=== PATIENT | male | born 1935 | race Caucasian/White ===

== ENCOUNTER 2018-02-03 19:04 | Inpatient (IN) | payer MEDICARE, OTHER ==
[~2018-02-03] VITALS: Ht 170.2 cm; Wt 90.0 kg
[~2018-02-03 19:04] MED LIST: GOLYS PO
[2018-02-03] MEDS ORDERED: normal saline 1000ML IV soln IVB ONE ×2 (19:25→20:40)
[2018-02-03] MEDS ORDERED: morphine 4 MG/ML inj SYRINge IV ONE (19:25)
[2018-02-03] MEDS ORDERED: ondansetron/PF 4mg/2ml inj IV ONE (19:30)
[2018-02-03 19:44] LABS: BASOPHILS % (AUTO) 0 % (0-1); EOSINOPHILS % (AUTO) 0.3 % (0-6); HEMOGLOBIN 13.2 g/dl (14.0-17.9); LYMPHOCYTES # (AUTO) 0.3 X10'3 (1.1-4.8); LYMPHOCYTES % (AUTO) 14.4 % (21-51); MEAN CORPUSCULAR HEMOGLOBIN 30.5 PG (27.0-31.0); MEAN CORPUSCULAR HGB CONC 33.8 % (33.0-36.5); MEAN CORPUSCULAR VOLUME 90.2 FL (78-98); MEAN PLATELET VOLUME 7.9 FL (7.4-10.4); MONOCYTES % (AUTO) 0.9 % (2-12); NEUTROPHILS % (AUTO) 84.4 % (42-75); PLATELET COUNT 159 X10'3 (140-440); RED BLOOD COUNT 4.32 X10'6 (4.70-6.10); RED CELL DISTRIBUTION WIDTH 16.8 % (11.5-14.5); WHITE BLOOD COUNT 2.4 X10'3 (4.5-11.0)
[2018-02-03 19:58] LABS: ALANINE AMINOTRANSFERASE 14 U/L (12-78); ALBUMIN 3.3 G/DL (3.4-5.0); ALBUMIN/GLOBULIN RATIO 0.9 (1.1-1.5); ALKALINE PHOSPHATASE 89 IU/L (46-116); ANION GAP 15 (8-16); ASPARTATE AMINO TRANSFERASE 25 U/L (10-37); BILIRUBIN,TOTAL 0.8 MG/DL (0.1-1.0); BLOOD UREA NITROGEN 34 MG/DL (7-18); BUN/CREATININE RATIO 20.7 (5.4-32.0); CALCIUM 8.4 MG/DL (8.5-10.1); CHLORIDE 106 MMOL/L (99-107); CREATININE 1.64 MG/DL (0.60-1.10); POTASSIUM 3.8 MMOL/L (3.5-5.1); SODIUM 144 MMOL/L (135-145); TOTAL CARBON DIOXIDE 23.4 MMOL/L (24-32); eGFR 40 ML/MIN
[2018-02-03 20:02] LABS: GLUCOSE 95 MG/DL (70-104)
[2018-02-03 20:03] LABS: INR 2.6 INR; PARTIAL THROMBOPLASTIN TIME 31 SECONDS (22-32); PROTHROMBIN TIME 25.4 SECONDS (9.0-12.0)
[2018-02-03 20:15] LABS: CLARITY,URINE TURBID (Clear); COLOR,URINE RED (Yellow); GLUCOSE, URINE NEGATIVE (Neg); KETONES,URINE NEGATIVE (Neg); LEUKOCYTE ESTERASE ,URINE LARGE (Neg); NITRITES, URINE NEGATIVE (Neg); OCCULT BLOOD,URINE LARGE (Neg); PROTEIN,URINE 30 mg/dl (Neg)
[2018-02-03 20:21] LABS: UA COLLECTION TYPE STRAIGHT CATH
[2018-02-03 20:22] LABS: BACTERIA,URINE 4+ /HPF (Neg); RBC,URINE 50-100 /HPF (0-2); SQUAMOUS EPITHELIAL CELL,UR FEW /LPF (FEW); WBC,URINE 50-100 /HPF (0-4)
[2018-02-03] MEDS ORDERED: levoFLOXACIN-Levaquin 500mg/D5 100 ML IV ONE (20:30)
[2018-02-03 20:33] LABS: TOTAL CELLS COUNTED 100
[2018-02-03 20:35] LABS: ANISOCYTOSIS 1+; GIANT PLATELET FEW; LARGE PLATELETS FEW; PLATELET ESTIMATE NORMAL
[2018-02-03 20:37] LABS: BURR CELLS 1+; POLYCHROMASIA FEW
[2018-02-04] MEDS ORDERED: LEVO75TA PO (00:14)
[2018-02-04] MEDS ORDERED: POTA10TA10 PO (00:14)
[2018-02-04] MEDS ORDERED: MIDO5TAB PO (00:14)
[2018-02-04] MEDS ORDERED: BRIM5DRO16 EACHEYE (00:14)
[2018-02-04] MEDS ORDERED: MICO57CR2 TP (00:14)
[2018-02-04] MEDS ORDERED: POLY17PO10 PO (00:14)
[2018-02-04] MEDS ORDERED: CYA500T PO (00:14)
[2018-02-04] MEDS ORDERED: ATOR20TA66 PO (00:14)
[2018-02-04] MEDS ORDERED: XAL0.005OS EACHEYE (00:14)
[2018-02-04] MEDS ORDERED: MELA1TAB17 PO (00:14)
[2018-02-04] MEDS ORDERED: CARB1TAB23 PO (00:14)
[2018-02-04] MEDS ORDERED: FINA5TAB11 PO (00:14)
[2018-02-04] MEDS ORDERED: SENN-173 PO (00:15)
[2018-02-04] MEDS ORDERED: ACET325T49 PO (00:15)
[2018-02-04] MEDS ORDERED: DOCU100T PO (00:15)
[2018-02-04] MEDS ORDERED: MULT1CAP44 PO (00:15)
[2018-02-04] MEDS ORDERED: MAGN400O6 PO (00:15)
[2018-02-04] MEDS ORDERED: DULR RC (00:15)
[2018-02-04] MEDS ORDERED: COU5T PO (00:15)
[2018-02-04] MEDS ORDERED: COU1T PO (00:15)
[2018-02-04] MEDS ORDERED: morphine 2 MG/ML inj. syringe IV PRN (02:50)
[2018-02-04] MEDS ORDERED: ondansetron/PF 4mg/2ml inj IV PRN (02:50)
[2018-02-04] MEDS: normal saline 1000ml 1,000 ML IV SCH ×2 (04:38→12:50)
[2018-02-04 07:02] VITALS: BP 62/28
== END 2018-02-04 14:27 | disposition hospice, inpatient (51) | DRG 871 ==
LOC: ER 19:04 → ED HOLD 02-04 02:50 → OBSVTOIN 02-04 02:50 → SUR 3N 02-04 04:30
PROVIDERS: ADMIT Internal Medicine; ATTEND Family Medicine
DX: A41.9 Sepsis, unspecified organism (principal); R65.21 Severe sepsis with septic shock; G93.41 Metabolic encephalopathy; N39.0 Urinary tract infection, site not specified; E03.9 Hypothyroidism, unspecified; F03.90 Unspecified dementia, unspecified severity, without behavioral disturbance, psychotic disturbance, mood disturbance, and anxiety; G20 Parkinson's disease; R06.03 Acute respiratory distress; H40.9 Unspecified glaucoma; H54.7 Unspecified visual loss; M19.90 Unspecified osteoarthritis, unspecified site; I11.0 Hypertensive heart disease with heart failure; I50.9 Heart failure, unspecified; Z66 Do not resuscitate; Z51.5 Encounter for palliative care; Z95.0 Presence of cardiac pacemaker; Z88.8 Allergy status to other drugs, medicaments and biological substances; Z91.018 Allergy to other foods; Z79.899 Other long term (current) drug therapy; Z86.73 Personal history of transient ischemic attack (TIA), and cerebral infarction without residual deficits
CPT/HCPCS: 96361; 96365; 96366; 96375; 96376; 99285; P9612; 36415; 71045; 80053; 81001; 83605; 84145; 85025; 85610; 85730; 87040; 87070; 87077; 87088; 87186; 93005; G0378; J1956; J2270; J2405; J7030